=== PATIENT | female | born 1990 | race Caucasian/White ===

== ENCOUNTER 2017-02-08 20:26 | Emergency (ER) | payer BC, SELFPAY | END 2017-02-08 21:12 | disposition home or self-care (01) | LOC: ERS 20:26 | DX: M54.2 Cervicalgia (principal); M62.838 Other muscle spasm; F17.210 Nicotine dependence, cigarettes, uncomplicated; V43.62XA Car passenger injured in collision with other type car in traffic accident, initial encounter | CPT/HCPCS: 99284 ==

== ENCOUNTER 2021-08-07 13:20 | Outpatient (CLI) | payer MEDICAID, OTHER | END 2021-08-07 13:21 | disposition home or self-care (01) | LOC: BICMAMMO 13:20 | PROVIDERS: ATTEND Student in an Organized Health Care Education/Training Program | DX: N63.15 Unspecified lump in the right breast, overlapping quadrants (principal) | CPT/HCPCS: 77066; G0279 ==

== ENCOUNTER 2023-04-27 10:20 | Emergency (ER) | payer MEDICAID, OTHER | END 2023-04-27 11:19 | disposition home or self-care (01) | LOC: ERS 10:20 | DX: Z34.92 Encounter for supervision of normal pregnancy, unspecified, second trimester (principal); F17.210 Nicotine dependence, cigarettes, uncomplicated; Z3A.26 26 weeks gestation of pregnancy | CPT/HCPCS: 99283 ==

== ENCOUNTER 2024-05-26 23:24 | Emergency (ER) | payer OTHER ==
[2024-05-27] MEDS ORDERED: Ondansetron PF 4 MG/2 ML Vial ONE (00:02)
[2024-05-27] MEDS ORDERED: Morphine 4 MG/ML VIAL ONE (00:07)
[2024-05-27 00:10] LABS: #Basophils Less than 0.03 10x3/uL (0.0-0.2); %Basophils 0.3 % (0.0-1.0); %Eosinophils 1.7 % (0.0-10.0); %Lymphocytes 17.7 % (21.0-51.0); %Monocytes 3.9 % (0.0-10.0); Hematocrit 34.4 % (36.0-47.0); Hemoglobin 11.4 g/dL (12.0-16.0); Mean Corpuscular HGB CONC 33.1 g/dL (32.0-36.0); Mean Corpuscular Hemoglobin 28.8 pg (27.0-31.0); Mean Corpuscular Volume 86.9 fL (78.0-98.0); Mean Platelet Volume 9.1 fL (7.4-10.4); Platelet Count 245 10x3/uL (130-400); RBC Distribution Width 12.8 % (11.5-14.5); Red Blood Cell (RBC) Count 3.96 mill/uL (4.20-5.40)
[2024-05-27 00:25] LABS: ALT (SGPT) 18 U/L (Less than 34); AST (SGOT) 43 U/L (11-34); Albumin 4.5 g/dL (3.1-4.5); Alkaline Phosphatase 58 U/L (40-110); Anion Gap 16 mmol/L (10-20); BHCG - Serum Negative (NEGATIVE); BUN (Urea Nitrogen) 10 mg/dL (7.0-18.7); Bilirubin, Total 0.1 mg/dL (0.3-1.2); Calc. Creatinine Clearance 0 mL/min (70-130); Carbon Dioxide 23 mmol/L (22-29); Chloride 107 mmol/L (98-107); Estimated GFR 101; Globulin 3.4 g/dL (2.4-3.5); Glucose 104 mg/dL (70-105); Potassium 4.5 mmol/L (3.5-5.1); Pregs Control Background? CLEAR/WHITE (CLR/WHITE); Pregs Control Bar Appear? YES (CONTROL BAR); Protein, Total 7.9 g/dL (6.0-8.3); Sodium 141 mmol/L (136-145)
[2024-05-27 00:29] LABS: Troponin I Less than 0.010 ng/mL (< 0.028)
== END 2024-05-27 02:24 | disposition home or self-care (01) ==
LOC: ERS 23:24
DX: K80.10 Calculus of gallbladder with chronic cholecystitis without obstruction (principal); F17.290 Nicotine dependence, other tobacco product, uncomplicated
CPT/HCPCS: 71045; 76705; 80053; 83690; 84484; 84703; 85025; 93005; 96361; 96374; 96375; J2270; J2405